=== PATIENT | male | born 1995 | race Two or more races ===

== ENCOUNTER 2022-01-21 13:26 | Emergency (ER) | payer MEDICAID, OTHER ==
[~2022-01-21] VITALS: Ht 170.2 cm; Wt 79.4 kg
[~2022-01-21 13:26] MED LIST: FLUO40CA8 PO; QUET200T PO
--- NOTE | 2022-01-21 13:38 | NUR ---
TO ER BED 13, [id number] WITH SI TO OD ON DRUGS, WANTS VOLUNTARY TO PSYCH FACILITY, AA[facility], COOPERATIVE, BREATHING EVEN AND NON LABORED, AWAITING MD ORDERS
--- NOTE | 2022-01-21 13:42 | NUR ---
URINE COLLECTED AND SENT TO LAB
[2022-01-21 13:54] LABS: BASOPHILS # (AUTO) 0.1 K/uL (0.0-0.2); BASOPHILS % (AUTO) 1.1 % (0.0-2.0); EOSINOPHILS % (AUTO) 1.2 % (0.0-6.0); HEMATOCRIT 39 % (39-51); LYMPHOCYTES # (AUTO) 1.1 K/uL (0.8-4.8); LYMPHOCYTES % (AUTO) 17.8 % (20.0-44.0); MEAN CORPUSCULAR HGB CONC 33 g/dl (31.0-36.0); MEAN CORPUSCULAR VOLUME 77 fL (80-96); MONOCYTES # (AUTO) 0.5 K/uL (0.1-1.30); MONOCYTES % (AUTO) 7.4 % (2.0-12.0); NEUTROPHILS # (AUTO) 4.5 K/uL (1.8-8.9); NEUTROPHILS % (AUTO) 72.5 % (43.0-81.0); PLATELET COUNT (AUTO) 272 K/uL (150-450); RED BLOOD CELL COUNT(AUTO) 5.09 MIL/uL (4.5-6.0); WHITE BLOOD COUNT (AUTO) 6.2 K/uL (4.3-11.0)
[2022-01-21 13:57] LABS: BILIRUBIN,URINE NEGATIVE (NEGATIVE); COLOR,URINE YELLOW (YELLOW); LEUKOCYTE ESTERASE ,URINE NEGATIVE (NEGATIVE); NITRITE, URINE NEGATIVE (NEGATIVE); PROTEIN,URINE NEGATIVE (NEGATIVE); UGLUCOSE NEGATIVE (NEGATIVE); UROBILINOGEN,URINE 0.2 EU/dL (0.2)
[2022-01-21 14:36] LABS: ALANINE AMINOTRANSFERASE 29 U/L (12-78); ALBUMIN 4.1 g/dL (3.4-5.0); ALKALINE PHOSPHATASE 94 U/L (46-116); ASPARTATE AMINOTRANSFERASE 21 U/L (15-37); BILIRUBIN,DIRECT 0.1 mg/dL (0.0-0.2); BILIRUBIN,TOTAL 0.2 mg/dL (0.2-1.0); CALCIUM, SERUM 8.5 mg/dL (8.5-10.1); CARBON DIOXIDE 25 mmol/L (21-32); CHLORIDE 106 mmol/L (98-107); CREATININE 0.9 mg/dL (0.6-1.3); GLUCOSE 86 mg/dL (74-106); SODIUM SERUM 140 mmol/L (136-145); UREA NITROGEN, BLOOD 14 mg/dL (7-18)
--- NOTE | 2022-01-21 14:38 | NUR ---
COVID ANTIGEN SWAB DONE AND SENT TO THE LAB
[2022-01-21 14:43] LABS: ACETAMINOPHEN < 10 ug/ml (10-30); ALCOHOL, BLOOD < 3 mg/dL (0-0)
--- NOTE | 2022-01-21 16:24 | NUR ---
[facility] faxed clinicals to [facility] [[address] [place] [id number] FAX:[phone]] for voluntary psychiatric treatment.
--- NOTE | 2022-01-21 18:53 | NUR ---
[facility] ROOM ASSIGNED DURING NURSE REPORT, RN FOR REPORT [phone] EXT [phone], AMBULANCE ETA TO FOLLOW
--- NOTE | 2022-01-21 19:13 | NUR ---
[facility] ETA 45-60 MINUTES
--- NOTE | 2022-01-21 19:45 | NUR ---
REPORT GIVEN TO NURSE COOK FROM [facility]
--- NOTE | 2022-01-21 20:10 | NUR ---
PT PICKED UP BY [facility] IN STABLE CONDITION. BELONGINGS TRANSPORTED WITH PATIENT.
[2022-01-21 20:11] VITALS: BP 132/89
== END 2022-01-21 20:12 ==
LOC: ER 13:27
DX: R45.851 Suicidal ideations (principal); F19.10 Other psychoactive substance abuse, uncomplicated; F11.10 Opioid abuse, uncomplicated; Z59.00 Homelessness unspecified; Z20.822 Contact with and (suspected) exposure to COVID-19
CPT/HCPCS: 99285; 85025; 80048; 80076; 81003; 36415; 87426; 80143; 80320; 80307; C9803; G0480